=== PATIENT | female | born 1940 | race Two or more races ===

== ENCOUNTER → 2022-08-13 13:09 | Outpatient (CLI) | payer MEDICARE, SELFPAY | PROVIDERS: Visit Provider Anesthesiology | DX: M54.12 Radiculopathy, cervical region (principal) ==

== ENCOUNTER → 2022-11-06 12:20 | Outpatient (CLI) | payer MEDICARE, SELFPAY ==
--- NOTE | 2022-11-06 12:21 | CA_ITS ---
APPROVED REPORT EXAM: Comprehensive 2D, Doppler, and color-flow Echocardiogram [employer] Trainer: Erika Demarco RVT Ht: 5 ft 6 in Wt: 135lbs BSA: 1.69 BP: 141/71 mmHg Indications: SOA,MURMUR,HTN,HLD 2D Dimensions LVOT 1.92 cm (M/F) 1.5-2.5 LA Volume 43.10 mL LA Volume Index 25.50 mL/m2 (M/F) 16-34 M-Mode Dimensions RVDd 2.84 cm (0.9-2.6) LA Diam 4.75 cm (1.9-4.0) LVDd 4.93 cm (3.5-5.7) Ao Diam 3.33 cm (2.0-3.7) LVDs 3.07 cm (3.5-5.7) IVSd 1.02 cm (0.6-1.1) PWd 0.91 cm (0.6-1.1) EF (Teich) 67.70% FS 37.70% EDV (Teich) 114.40 mL TAPSE 1.78 (<1.7) ESV (Teich) 37.00 mL LV Diastology E Decel Time 333.00 (160-240 msec) E/A Ratio 0.6 MED E' 8.00 (< 7 cm/sec) E'/MED E' Ratio 9.76 (>14) LAT E' 3.90 (<10 cm/sec) E/LAT E' Ratio 20.03 (>14) Aortic Valve LVOT Max 123.00 (70-110 cm/s) LVOT VTI 31.82 cm AoV Peak Bro. 336.00 (50-130 cm/s) AO Peak GR. 46.00 mmHg AO Mean GR. 28.10 (<5 mmHg) AO VTI 79.27 (18-25 cm) TERELL (VTI) 1.16 (2.5-4.5 cm2) Mitral Valve MV E Max Bro. 78.00 (40-130 cm/s) MV A Velocity 122.00 (40-130 cm/s) E/A Ratio 0.64 MV Decel. Time 333.00 (160-240 ms) MV PHT 98.00 ms Pulmonary Valve PV Peak Velocity 101.00 (50-150 cm/s) Tricuspid Valve TR P. Velocity 283.00 cm/s RAP Estimate 10.00 mmHg RVSP 42.10 mmHg Left Ventricle Left atrium is mildly enlarged, left ventricle is normal size, mild concentric left ventricular hypertrophy, estimated ejection fraction 55% with no regional wall motion abnormality, grade 1 diastolic dysfunction seen without tissue Doppler evidence of raise left atrial pressure. Right Ventricle Right atrium and right ventricle are normal size and contractility. Aortic Valve Aortic valve is thickened and calcified with restriction in the leaflet mobility, the mean gradient across aortic valve is 28 mmHg, valve area is 1.23 cm???, represents moderate aortic stenosis, there is no significant aortic insufficiency. Mitral Valve Mitral valve has mitral annular calcification, there is no mitral stenosis, there is mild mitral regurgitation. Tricuspid Valve Tricuspid valve grossly normal, there is mild tricuspid regurgitation, tricuspid regurgitation jet velocity is inadequate for calculation of the right ventricular systolic pressure. Pulmonic Valve Pulmonic valve is poorly visualized. Great Vessels Aortic root is normal size. Inferior vena cava is normal size with normal inspiratory collapse. Pericardium No significant pericardial effusion noted. Conclusion 1. Normal left ventricular size, mild concentric left ventricular hypertrophy, estimated ejection fraction 55% with no regional wall motion abnormality, grade 1 diastolic dysfunction seen without tissue Doppler evidence of raise left atrial pressure. 2. Thickened and calcified aortic valve with mean gradient across valve is 28 mmHg, valve area 1.23 cm??? represents moderate aortic stenosis, there is no significant aortic insufficiency. 3. Mild mitral and tricuspid regurgitation. 4. No significant pericardial effusion noted. 5. Inferior vena cava is normal size with normal inspiratory collapse. Electronically signed by : Kalyan Mata MD 11/07/2022 07:14:38
== END ==
PROVIDERS: Visit Provider Internal Medicine
DX: E78.2 Mixed hyperlipidemia (principal); I10 Essential (primary) hypertension; R01.1 Cardiac murmur, unspecified
CPT/HCPCS: 93306